=== PATIENT | female | born 1950 | race Hispanic/Latino ===

== ENCOUNTER 2020-10-31 09:36 | Inpatient (IN) | payer BC, MEDICARE ==
[2020-10-31] MEDS ORDERED: HYDROcodone/Acetaminophen 5/325 mg Tablet ONE (10:48)
[2020-10-31 11:00] LABS: #Eosinphils 0.1 thou/uL (0.0-0.7); #Lymphocytes 1.5 thou/uL (1.20-3.40); #Monocytes 0.5 thou/uL (0.11-0.59); #Neutrophils 9.5 thou/uL (1.40-6.50); %Basophils 0.1 % (0.0-1.0); %Lymphocytes 13.1 % (21.0-51.0); %Monocytes 4.5 % (0.0-10.0); %Neutrophils 81.3 % (42.0-75.0); Hemoglobin 11.2 g/dL (12.0-16.0); Mean Corpuscular HGB CONC 34.2 g/dL (32.0-36.0); Mean Corpuscular Hemoglobin 30.3 pg (27.0-31.0); Mean Corpuscular Volume 88.6 fL (78.0-98.0); Mean Platelet Volume 6.3 fL (7.4-10.4); Platelet Count 365 thou/uL (130-400); RBC Distribution Width 12.4 % (11.5-14.5); White Blood Cell (WBC) Count 11.7 thou/uL (4.8-10.8)
[2020-10-31] MEDS ORDERED: Cefepime 2 GM VIAL ONE (11:14)
[2020-10-31 11:21] LABS: ALT (SGPT) 23 U/L (8-55); AST (SGOT) 20 U/L (5-34); Albumin 3.5 g/dL (3.4-4.8); Alkaline Phosphatase 118 U/L (40-110); Anion Gap 15 mmol/L (10-20); BUN (Urea Nitrogen) 29 mg/dL (9.8-20.1); Bilirubin, Total 0.4 mg/dL (0.2-1.2); Calc. Creatinine Clearance 0 mL/min (70-130); Calcium 9.8 mg/dL (7.8-10.44); Carbon Dioxide 26 mmol/L (23-31); Chloride 98 mmol/L (98-107); Globulin 4.6 g/dL (2.4-3.5); Glucose 134 mg/dL (80-115); Potassium 4.9 mmol/L (3.5-5.1); Protein, Total 8.1 g/dL (5.8-8.1); Sodium 134 mmol/L (136-145)
[2020-10-31] MEDS ORDERED: Vancomycin 1 GM/200 ML BAG ONE (11:35)
[2020-10-31] MEDS ORDERED: HumaLOG 300 UNITS/3 ML VIAL SC PRN (12:15)
[2020-10-31] MEDS ORDERED: Acetaminophen 325 MG TAB PO PRN (12:15)
[2020-10-31] MEDS ORDERED: Dextrose 5% in Water 1,000 ML IV PRN (12:15)
[2020-10-31] MEDS ORDERED: Dextrose 50% Abboject 50 ML SYRINGE SLOW IVP PRN (12:15)
[2020-10-31 14:54] VITALS: BMI 33.4
[2020-10-31] MEDS: metFORMIN 500 MG TAB PO SCH (16:47)
[2020-10-31] MEDS ORDERED: Cefepime 2 GM in Sodium Chloride 0.9% 100 ML IVPB SCH (21:00)
[2020-10-31] MEDS: Latanoprost 0.005% Ophth Soln 2.5 ml Bottle EA EYE SCH (21:51)
[2020-10-31] MEDS: Cefepime 2 GM in Sodium Chloride 0.9% 100 ML IVPB SCH (22:47)
[2020-10-31] MEDS ORDERED: CEFEPIME IVPB SCH (23:40)
[2020-10-31] MEDS ORDERED: SODIUM CHLORIDE 0.9% IVPB SCH (23:40)
[2020-11-01 05:43] LABS: White Blood Cell (WBC) Count 10.1 thou/uL (4.8-10.8)
[2020-11-01 05:44] LABS: #Eosinphils 0.2 thou/uL (0.0-0.7); #Lymphocytes 1.5 thou/uL (1.20-3.40); #Monocytes 0.6 thou/uL (0.11-0.59); #Neutrophils 7.8 thou/uL (1.40-6.50); %Basophils 0.2 % (0.0-1.0); %Eosinophils 2.3 % (0.0-10.0); %Lymphocytes 14.8 % (21.0-51.0); %Monocytes 5.7 % (0.0-10.0); %Neutrophils 76.9 % (42.0-75.0); Hemoglobin 10.5 g/dL (12.0-16.0); Mean Corpuscular HGB CONC 33.5 g/dL (32.0-36.0); Mean Corpuscular Hemoglobin 29.8 pg (27.0-31.0); Mean Platelet Volume 6.3 fL (7.4-10.4); Platelet Count 346 thou/uL (130-400); RBC Distribution Width 12.3 % (11.5-14.5); Red Blood Cell (RBC) Count 3.53 mill/uL (4.20-5.40)
[2020-11-01 06:11] LABS: Anion Gap 13 mmol/L (10-20); BUN (Urea Nitrogen) 27 mg/dL (9.8-20.1); Calc. Creatinine Clearance 70 mL/min (70-130); Calcium 9.4 mg/dL (7.8-10.44); Carbon Dioxide 27 mmol/L (23-31); Chloride 100 mmol/L (98-107); Glucose 136 mg/dL (80-115); Potassium 4.9 mmol/L (3.5-5.1); Sodium 135 mmol/L (136-145)
[2020-11-01] MEDS: Acetaminophen 325 MG TAB PO PRN (06:35)
[2020-11-01] MEDS: glyBURIDE 5 MG TAB PO SCH (07:38)
[2020-11-01] MEDS: metFORMIN 500 MG TAB PO SCH ×2 (07:38→18:09)
[2020-11-01] MEDS: Lantus 1000 UNITS/10 ML VIAL SC SCH (08:01)
[2020-11-01] MEDS: Rosuvastatin 20 MG TAB PO SCH (08:07)
[2020-11-01] MEDS: Ezetimibe 10 MG TAB PO SCH (08:07)
[2020-11-01] MEDS: Lisinopril 10 MG TAB PO SCH (08:07)
[2020-11-01] MEDS: Cefepime 2 GM in Sodium Chloride 0.9% 100 ML IVPB SCH ×2 (13:19→22:08)
[2020-11-01] MEDS: Vancomycin 1.5 GM in Premix Bag 1 BAG IVPB SCH (14:12)
[2020-11-01] MEDS: HumaLOG 300 UNITS/3 ML VIAL SC PRN (18:10)
[2020-11-01] MEDS: Latanoprost 0.005% Ophth Soln 2.5 ml Bottle EA EYE SCH (20:09)
[2020-11-01] MEDS: Enoxaparin Sodium 40 MG/0.4 ML SYRINGE SC SCH (20:09)
[2020-11-02] MEDS: glyBURIDE 5 MG TAB PO SCH (06:19)
[2020-11-02] MEDS: Acetaminophen 325 MG TAB PO PRN (06:22)
[2020-11-02] MEDS: Lisinopril 10 MG TAB PO SCH (08:07)
[2020-11-02] MEDS: metFORMIN 500 MG TAB PO SCH ×2 (08:07→16:54)
[2020-11-02] MEDS: Rosuvastatin 20 MG TAB PO SCH (08:07)
[2020-11-02] MEDS: Ezetimibe 10 MG TAB PO SCH (08:07)
[2020-11-02] MEDS: Cefepime 2 GM in Sodium Chloride 0.9% 100 ML IVPB SCH ×2 (10:03→23:46)
[2020-11-02] MEDS: Lantus 1000 UNITS/10 ML VIAL SC SCH (10:04)
[2020-11-02] MEDS: Vancomycin 1.5 GM in Premix Bag 1 BAG IVPB SCH (12:35)
[2020-11-02] MEDS: Latanoprost 0.005% Ophth Soln 2.5 ml Bottle EA EYE SCH (21:37)
[2020-11-02] MEDS: Enoxaparin Sodium 40 MG/0.4 ML SYRINGE SC SCH (21:37)
[2020-11-02] MEDS: Senokot S 8.6-50 MG TAB PO SCH (21:38)
[2020-11-03] MEDS: Acetaminophen 325 MG TAB PO PRN (04:01)
[2020-11-03] MEDS: Ezetimibe 10 MG TAB PO SCH (09:00)
[2020-11-03] MEDS ORDERED: Fentanyl 100 MCG/2 ML VIAL ONE ×3 (09:18→12:30)
[2020-11-03] MEDS ORDERED: Bacitracin Zinc Ointment 30 gm TUBE ONE (09:19)
[2020-11-03] MEDS: Lisinopril 10 MG TAB PO SCH (09:36)
[2020-11-03] MEDS ORDERED: Bupivacaine HCl 0.5%/Epinephrine 1:200,000/PF 30 ml Vial ONE (10:04)
[2020-11-03] MEDS ORDERED: Dexamethasone 20 MG/5 ML VIAL ONE (10:04)
[2020-11-03] MEDS ORDERED: Lidocaine 1% PF 5 ML VIAL ONE (10:04)
[2020-11-03] MEDS ORDERED: PROPOFOL 200 MG/20 ML VIAL ONE (10:04)
[2020-11-03] MEDS ORDERED: Ondansetron PF 4 MG/2 ML Vial ONE (10:04)
[2020-11-03] MEDS: Polyethylene Glycol 3350 17 GM Packet PO SCH (10:29)
[2020-11-03] MEDS: glyBURIDE 5 MG TAB PO SCH (10:29)
[2020-11-03] MEDS: Dextrose 5 % And 0.9 % NaCl 1,000 ML IV SCH (10:29)
[2020-11-03] MEDS: Cefepime 2 GM in Sodium Chloride 0.9% 100 ML IVPB SCH ×2 (10:30→23:31)
[2020-11-03] MEDS: Senokot S 8.6-50 MG TAB PO SCH ×2 (10:30→21:15)
[2020-11-03] MEDS: Rosuvastatin 20 MG TAB PO SCH (10:30)
[2020-11-03 13:41] LABS: Vancomycin, Trough 12.2 ug/mL
[2020-11-03 13:42] LABS: Anion Gap 14 mmol/L (10-20); BUN (Urea Nitrogen) 20 mg/dL (9.8-20.1); Calc. Creatinine Clearance 76 mL/min (70-130); Calcium 9.2 mg/dL (7.8-10.44); Carbon Dioxide 21 mmol/L (23-31); Chloride 106 mmol/L (98-107); Glucose 143 mg/dL (80-115); Potassium 5.1 mmol/L (3.5-5.1); Sodium 136 mmol/L (136-145)
[2020-11-03] MEDS: Vancomycin 1.5 GM in Premix Bag 1 BAG IVPB SCH (16:00)
[2020-11-03] MEDS: VANCOMYCIN 1.75 GM/350 ML BAG 1.75 GM in Premix Bag 1 BAG IVPB SCH (16:02)
[2020-11-03] MEDS: HumaLOG 300 UNITS/3 ML VIAL SC PRN (18:27)
[2020-11-03] MEDS: Enoxaparin Sodium 40 MG/0.4 ML SYRINGE SC SCH (21:15)
[2020-11-03] MEDS: Latanoprost 0.005% Ophth Soln 2.5 ml Bottle EA EYE SCH (21:15)
[2020-11-04] MEDS: Dextrose 5 % And 0.9 % NaCl 1,000 ML IV SCH (04:00)
[2020-11-04 05:37] LABS: #Lymphocytes 1.2 thou/uL (1.20-3.40); #Monocytes 0.6 thou/uL (0.11-0.59); #Neutrophils 12.1 thou/uL (1.40-6.50); %Basophils 0.1 % (0.0-1.0); %Eosinophils 0.2 % (0.0-10.0); %Lymphocytes 8.8 % (21.0-51.0); %Monocytes 4.4 % (0.0-10.0); %Neutrophils 86.6 % (42.0-75.0); Hemoglobin 9.2 g/dL (12.0-16.0); Mean Corpuscular HGB CONC 32.7 g/dL (32.0-36.0); Mean Corpuscular Hemoglobin 29.1 pg (27.0-31.0); Mean Corpuscular Volume 88.9 fL (78.0-98.0); Mean Platelet Volume 6.4 fL (7.4-10.4); Platelet Count 344 thou/uL (130-400); RBC Distribution Width 12.1 % (11.5-14.5); Red Blood Cell (RBC) Count 3.15 mill/uL (4.20-5.40)
[2020-11-04 05:58] LABS: Anion Gap 13 mmol/L (10-20); BUN (Urea Nitrogen) 19 mg/dL (9.8-20.1); Calc. Creatinine Clearance 80 mL/min (70-130); Calcium 8.7 mg/dL (7.8-10.44); Carbon Dioxide 23 mmol/L (23-31); Chloride 106 mmol/L (98-107); Glucose 132 mg/dL (80-115); Potassium 4.5 mmol/L (3.5-5.1); Sodium 137 mmol/L (136-145)
[2020-11-04] MEDS: Ezetimibe 10 MG TAB PO SCH (09:35)
[2020-11-04] MEDS: Lisinopril 10 MG TAB PO SCH (09:35)
[2020-11-04] MEDS: Lantus 1000 UNITS/10 ML VIAL SC SCH (09:36)
[2020-11-04] MEDS: Rosuvastatin 20 MG TAB PO SCH (09:37)
[2020-11-04] MEDS: Polyethylene Glycol 3350 17 GM Packet PO SCH (09:37)
[2020-11-04] MEDS: Senokot S 8.6-50 MG TAB PO SCH ×2 (09:37→20:46)
[2020-11-04] MEDS: Cefepime 2 GM in Sodium Chloride 0.9% 100 ML IVPB SCH ×2 (11:14→23:51)
[2020-11-04] MEDS: HumaLOG 300 UNITS/3 ML VIAL SC PRN ×2 (13:41→17:24)
[2020-11-04] MEDS: VANCOMYCIN 1.75 GM/350 ML BAG 1.75 GM in Premix Bag 1 BAG IVPB SCH (17:09)
[2020-11-04] MEDS: metFORMIN 500 MG TAB PO SCH (17:17)
[2020-11-04] MEDS: Enoxaparin Sodium 40 MG/0.4 ML SYRINGE SC SCH (20:45)
[2020-11-04] MEDS: Latanoprost 0.005% Ophth Soln 2.5 ml Bottle EA EYE SCH (20:46)
[2020-11-05] MEDS: Dextrose 5 % And 0.9 % NaCl 1,000 ML IV SCH ×2 (02:24→20:56)
[2020-11-05] MEDS: glyBURIDE 5 MG TAB PO SCH (06:52)
[2020-11-05] MEDS: Rosuvastatin 20 MG TAB PO SCH (08:55)
[2020-11-05] MEDS: Senokot S 8.6-50 MG TAB PO SCH ×2 (08:55→21:04)
[2020-11-05] MEDS: metFORMIN 500 MG TAB PO SCH ×2 (08:55→17:31)
[2020-11-05] MEDS: Lisinopril 10 MG TAB PO SCH (08:55)
[2020-11-05] MEDS: Lantus 1000 UNITS/10 ML VIAL SC SCH (08:55)
[2020-11-05] MEDS: Ezetimibe 10 MG TAB PO SCH (08:56)
[2020-11-05] MEDS: Polyethylene Glycol 3350 17 GM Packet PO SCH (11:11)
[2020-11-05] MEDS: HYDROcodone/Acetaminophen 5/325 mg Tablet PO PRN (16:14)
[2020-11-05] MEDS: Latanoprost 0.005% Ophth Soln 2.5 ml Bottle EA EYE SCH (21:04)
[2020-11-05] MEDS: Enoxaparin Sodium 40 MG/0.4 ML SYRINGE SC SCH (21:04)
[2020-11-05] MEDS: Cefepime 2 GM in Sodium Chloride 0.9% 100 ML IVPB SCH (22:10)
[2020-11-06] MEDS: HYDROcodone/Acetaminophen 5/325 mg Tablet PO PRN (08:55)
[2020-11-06] MEDS: Lantus 1000 UNITS/10 ML VIAL SC SCH (08:55)
[2020-11-06] MEDS: Lisinopril 10 MG TAB PO SCH (08:56)
[2020-11-06] MEDS: Rosuvastatin 20 MG TAB PO SCH (08:56)
[2020-11-06] MEDS: Polyethylene Glycol 3350 17 GM Packet PO SCH (08:57)
[2020-11-06] MEDS: Senokot S 8.6-50 MG TAB PO SCH ×2 (08:57→21:42)
[2020-11-06] MEDS: Ezetimibe 10 MG TAB PO SCH (08:57)
[2020-11-06] MEDS: metFORMIN 500 MG TAB PO SCH ×2 (08:57→18:12)
[2020-11-06] MEDS: glyBURIDE 5 MG TAB PO SCH (08:57)
[2020-11-06] MEDS: HumaLOG 300 UNITS/3 ML VIAL SC PRN (16:15)
[2020-11-06] MEDS: Dextrose 5 % And 0.9 % NaCl 1,000 ML IV SCH (17:26)
[2020-11-06] MEDS: Enoxaparin Sodium 40 MG/0.4 ML SYRINGE SC SCH (21:41)
[2020-11-06] MEDS: Latanoprost 0.005% Ophth Soln 2.5 ml Bottle EA EYE SCH (21:41)
[2020-11-07] MEDS: HYDROcodone/Acetaminophen 5/325 mg Tablet PO PRN (06:43)
[2020-11-07] MEDS: Lantus 1000 UNITS/10 ML VIAL SC SCH (09:03)
[2020-11-07] MEDS: Rosuvastatin 20 MG TAB PO SCH (09:04)
[2020-11-07] MEDS: Polyethylene Glycol 3350 17 GM Packet PO SCH (09:04)
[2020-11-07] MEDS: Senokot S 8.6-50 MG TAB PO SCH (09:05)
[2020-11-07] MEDS: Ezetimibe 10 MG TAB PO SCH (09:05)
[2020-11-07] MEDS: metFORMIN 500 MG TAB PO SCH ×2 (09:05→18:07)
[2020-11-07] MEDS: glyBURIDE 5 MG TAB PO SCH (09:05)
[2020-11-07] MEDS: Lisinopril 10 MG TAB PO SCH (11:20)
[2020-11-07 11:47] VITALS: TEMP 98.1
[2020-11-07] MEDS ORDERED: traMADol HCl 50 MG TAB PO PRN (12:44)
[2020-11-07] MEDS ORDERED: Ibuprofen 600 MG TAB PO PRN (12:44)
[2020-11-07] MEDS ORDERED: Acetaminophen 500 MG TAB PO PRN (12:44)
[2020-11-07] MEDS ORDERED: Ondansetron PF 4 MG/2 ML Vial IVP SCH (14:30)
[2020-11-07 16:04] VITALS: BP 110/71
== END 2020-11-07 18:26 | DRG 239 ==
LOC: ERS 09:36 → ERHOLD 12:21 → SJJU 13:25
PROVIDERS: ADMIT Family Medicine; ATTEND Internal Medicine
PROC: 0Y6J0Z2 Detachment at Left Lower Leg, Mid, Open Approach (ICD-10-PCS; principal; 2020-11-03)
DX: E11.52 Type 2 diabetes mellitus with diabetic peripheral angiopathy with gangrene (principal); A41.9 Sepsis, unspecified organism; M86.9 Osteomyelitis, unspecified; I25.10 Atherosclerotic heart disease of native coronary artery without angina pectoris; E11.69 Type 2 diabetes mellitus with other specified complication; E66.9 Obesity, unspecified; I10 Essential (primary) hypertension; E78.5 Hyperlipidemia, unspecified; Z96.1 Presence of intraocular lens; Z89.422 Acquired absence of other left toe(s); Z95.1 Presence of aortocoronary bypass graft; Z79.01 Long term (current) use of anticoagulants; Z79.4 Long term (current) use of insulin; Z79.899 Other long term (current) drug therapy; Z68.33 Body mass index [BMI] 33.0-33.9, adult
CPT/HCPCS: 36415; 36416; 80048; 80053; 80202; 83605; 85025; 87040; 88307; 88311; 93005; 93010; 96365; 96367; J0692; J1100; J1650; J1815; J2405; J2704; J3010; J3370; J3490